=== PATIENT | female | born 1975 | race Caucasian/White ===

== ENCOUNTER → 2018-01-19 | Day surgery (SDC) | payer BC ==
[2018-01-16 10:51] LABS: Basophils # (auto) 0 uL; Basophils % (auto) 0.3 % (0.0-2.0); Eosinophils # (auto) 0.1 uL; Eosinophils % (auto) 1.2 % (0.0-7.0); Hematocrit 37.8 % (36.0-46.0); Lymphocytes # (auto) 2.4 uL; Lymphocytes % (auto) 20.5 % (10.0-50.0); Mean Corpuscular Hemoglobin 27.8 pg (28.0-32.0); Mean Corpuscular Hgb Conc. 31.9 g/dL (32.0-36.0); Mean Corpuscular Volume 87.1 fL (80.0-100.0); Monocytes # (auto) 0.8 uL; Monocytes % (auto) 6.9 % (0.0-12.0); Neutrophils # (auto) 8.2 uL; Neutrophils % (auto) 71.1 % (37.0-80.0); Nucleated Red Blood Cells % 0.1 %; Platelet Count (auto) 340 10^3/uL (140-450); Red Blood Cells 4.34 10^6/uL (4.0-5.20); Red Cell Distribution Width 15.4 % (11.8-14.3); White Blood Cell 11.5 10^3/uL (4.4-10.8)
[2018-01-16 11:00] LABS: Urine Bacteria FEW /hpf (None Seen); Urine Blood Negative /uL (Negative); Urine Specific Gravity 1.003 (1.001-1.035); Urine WBC 4 /hpf (0 - 5)
[2018-01-16 11:02] LABS: INR 0.9 (0.9-1.15); Partial Thromboplastin Time 32.7 sec (23.78-33.04); Prothrombin Time 9.7 sec (9.27-12.13)
[2018-01-16 11:17] LABS: Albumin 3.4 g/dL (3.4-5.0); Calcium 9.1 mg/dL (8.5-10.1); Potassium 4.2 mmol/L (3.5-5.1)
[2018-01-16 11:20] LABS: Bilirubin, Total 0.4 mg/dL (0.2-1.0); Total Protein 8.7 g/dL (6.4-8.2)
[~2018-01-19] VITALS: Ht 160 cm; Wt 93.0 kg
[~2018-01-19] MED LIST: ALBUAER3 IN; DEXAMETHASONE SOD PHOS 10MG/1ML VIAL INJ ONE; GABA100C9 PO; HYDROmorphone HCL 2 MG/ML VL IV PRN; KETOROLAC TROMETH 30 MG/ML 1ML VIAL IV ONE; KETOROLAC TROMETH 30 MG/ML 1ML VIAL ONE; LABETALOL HCL 5 MG/ML 4ML SYRINGE IV PRN; LACTATED RINGER'S 1,000 ML IV SCH; MEPERIDINE HCL (50 MG/ML) 1 ML VIAL ONE; MIDAZOLAM HCL 1MG/1ML-2 ML VIAL IV PRN; MIDAZOLAM HCL 1MG/1ML-2 ML VIAL ONE; MONT10TA34 PO; MORPHINE SULFATE 4 MG/ML SYR/VIAL IV ONE; MORPHINE SULFATE 4 MG/ML SYR/VIAL IV PRN; ONDANSETRON HCL 4 MG/2 ML VIAL IV ONE; ONDANSETRON HCL 4 MG/2 ML VIAL IV PRN; PROPOFOL 10 MG/ML 20 ML IV ONE; SERT-160 PO; ceFAZolin 1GM/50ML 50 ML IV ONE; ePHEDrine SULFATE 50 MG/ML AMP IV PRN; fentaNYL CITRATE 100 MCG/2 ML VL ONE
== END | disposition home or self-care (01) ==
LOC: SUR 07:39
PROVIDERS: ATTEND Specialist
DX: D25.9 Leiomyoma of uterus, unspecified (principal); N92.0 Excessive and frequent menstruation with regular cycle; D64.9 Anemia, unspecified; F43.10 Post-traumatic stress disorder, unspecified; J45.909 Unspecified asthma, uncomplicated; N94.6 Dysmenorrhea, unspecified; K21.9 Gastro-esophageal reflux disease without esophagitis; F41.9 Anxiety disorder, unspecified; E66.9 Obesity, unspecified; F17.210 Nicotine dependence, cigarettes, uncomplicated; A63.0 Anogenital (venereal) warts; Z80.41 Family history of malignant neoplasm of ovary; Z3A.14 14 weeks gestation of pregnancy; Z79.899 Other long term (current) drug therapy; Z88.8 Allergy status to other drugs, medicaments and biological substances; Z98.890 Other specified postprocedural states; Z68.36 Body mass index [BMI] 36.0-36.9, adult; Z80.0 Family history of malignant neoplasm of digestive organs; Z80.8 Family history of malignant neoplasm of other organs or systems
CPT/HCPCS: 36415; 58558; 80053; 81001; 84702; 85025; 85610; 85730; 86850; 86900; 86901; J0690; J1100; J1885; J2175; J2250; J2704; J3010

== ENCOUNTER 2018-02-22 19:20 | Observation (INO) | payer BC ==
[~2018-02-22] VITALS: Ht 160 cm; Wt 94.3 kg
[~2018-02-22 19:20] MED LIST changes: -DEXAMETHASONE SOD PHOS 10MG/1ML VIAL INJ ONE; -HYDROmorphone HCL 2 MG/ML VL IV PRN; -KETOROLAC TROMETH 30 MG/ML 1ML VIAL IV ONE; -KETOROLAC TROMETH 30 MG/ML 1ML VIAL ONE; -LABETALOL HCL 5 MG/ML 4ML SYRINGE IV PRN; -LACTATED RINGER'S 1,000 ML IV SCH; -MEPERIDINE HCL (50 MG/ML) 1 ML VIAL ONE; -MIDAZOLAM HCL 1MG/1ML-2 ML VIAL IV PRN; -MIDAZOLAM HCL 1MG/1ML-2 ML VIAL ONE; -MORPHINE SULFATE 4 MG/ML SYR/VIAL IV ONE; -MORPHINE SULFATE 4 MG/ML SYR/VIAL IV PRN; -ONDANSETRON HCL 4 MG/2 ML VIAL IV ONE; -ONDANSETRON HCL 4 MG/2 ML VIAL IV PRN; -PROPOFOL 10 MG/ML 20 ML IV ONE; -ceFAZolin 1GM/50ML 50 ML IV ONE; -ePHEDrine SULFATE 50 MG/ML AMP IV PRN; -fentaNYL CITRATE 100 MCG/2 ML VL ONE
[2018-02-23 00:02] LABS: Basophils # (auto) 0.1 uL; Basophils % (auto) 0.5 % (0.0-2.0); Eosinophils # (auto) 0.2 uL; Eosinophils % (auto) 1.6 % (0.0-7.0); Hematocrit 36.5 % (36.0-46.0); Hemoglobin 11.8 g/dL (12.2-16.2); Lymphocytes # (auto) 2.6 uL; Lymphocytes % (auto) 17.3 % (10.0-50.0); Mean Corpuscular Hemoglobin 27.4 pg (28.0-32.0); Mean Corpuscular Hgb Conc. 32.5 g/dL (32.0-36.0); Mean Corpuscular Volume 84.5 fL (80.0-100.0); Monocytes # (auto) 1.2 uL; Monocytes % (auto) 7.9 % (0.0-12.0); Neutrophils # (auto) 10.8 uL; Neutrophils % (auto) 72.7 % (37.0-80.0); Nucleated Red Blood Cells % 0.1 %; Platelet Count (auto) 309 10^3/uL (140-450); Red Blood Cells 4.32 10^6/uL (4.0-5.20); White Blood Cell 14.8 10^3/uL (4.4-10.8)
[2018-02-23 00:22] LABS: Albumin 3.4 g/dL (3.4-5.0); Amylase 56 U/L (25-115); Anion Gap 12 (5-15); BUN/Creatinine Ratio 13.4; Blood Urea Nitrogen 13 mg/dL (7-18); Calcium 8.8 mg/dL (8.5-10.1); Carbon Dioxide 24 mmol/L (21-32); Chloride 106 mmol/L (98-107); GFR African American 81 mL/min; GFR Non-African American 67 mL/min; Glucose 96 mg/dL (74-106); Lipase 113 U/L (73-393); Sodium 142 mmol/L (136-145)
[2018-02-23 00:27] LABS: Alanine Aminotransferase 11 U/L (13-56); Alkaline Phosphatase 107 U/L (45-117); Aspartate Aminotransferase 14 U/L (15-37); Bilirubin, Total 0.4 mg/dL (0.2-1.0); Total Protein 8.3 g/dL (6.4-8.2)
[2018-02-23] MEDS ORDERED: ONDANSETRON HCL 4 MG/2 ML VIAL IV ONE (01:15)
[2018-02-23] MEDS ORDERED: MORPHINE SULFATE 4 MG/ML SYR/VIAL IV ONE (01:15)
[2018-02-23 01:22] LABS: Urine Bacteria FEW /hpf (None Seen); Urine Blood 3+ /uL (Negative); Urine Mucus FEW (None Seen); Urine Specific Gravity 1.026 (1.001-1.035); Urine WBC 30 /hpf (0 - 5)
[2018-02-23] MEDS ORDERED: metroNIDAZOLE 500 MG TAB PO ONE (01:45)
[2018-02-23] MEDS ORDERED: cefTRIAXone 1GM/50ML D5W 50 ML IV ONE (01:45)
[2018-02-23 02:03] VITALS: BP 116/66
== END 2018-02-23 02:15 | disposition home or self-care (01) | DRG 392 ==
LOC: ER 19:20 → OVERFLOW 23:37 → ER 02-23 02:15
PROVIDERS: ADMIT Emergency Medicine; ATTEND Emergency Medicine
DX: K59.00 Constipation, unspecified (principal); N85.2 Hypertrophy of uterus; N73.9 Female pelvic inflammatory disease, unspecified
CPT/HCPCS: 36415; 74176; 80053; 81001; 82150; 83690; 84484; 85025; 96374; 96375; 99284; G0378; J0696; J2270; J2405

== ENCOUNTER 2023-03-13 10:53 | Emergency (ER) | payer BC ==
[~2023-03-13] VITALS: Ht 160 cm; Wt 85.9 kg
[~2023-03-13 10:53] MED LIST changes: +GABA-1308 PO; -GABA100C9 PO; +MONT-8 PO; -MONT10TA34 PO
[2023-03-13 11:55] VITALS: BP 133/75; PULSE 95; TEMP 98.3
[2023-03-13] MEDS ORDERED: IPRATROPIUM BROM 0.5 MG/2.5ML INH SOL NEB ONE (12:15)
[2023-03-13] MEDS ORDERED: DexAMETHasone SOD PHOS 10MG/1ML VIAL INJ IM ONE (12:15)
[2023-03-13] MEDS ORDERED: ALBUTEROL SULF 2.5 MG/0.5ML(0.5%) NEB SOLN NEB ONE (12:15)
[2023-03-13 12:39] VITALS: RESP 20; O2SAT 95
[2023-03-13 13:19] LABS: COVID19 ANTIGEN SOFIA FIA NEGATIVE (NEGATIVE)
[2023-03-13 13:20] LABS: Rapid Influenza A Negative (Negative); Rapid Influenza B Negative (Negative)
[2023-03-13] MEDS ORDERED: ACET500T58 PO (14:28)
[2023-03-13] MEDS ORDERED: ALBU108A5 IN (14:28)
[2023-03-13] MEDS ORDERED: BENZ100C97 PO (14:28)
[2023-03-13] MEDS ORDERED: LORA10CA PO (14:28)
== END 2023-03-13 14:37 | disposition home or self-care (01) ==
LOC: ER 10:53
DX: J06.9 Acute upper respiratory infection, unspecified (principal); F12.10 Cannabis abuse, uncomplicated; Z20.822 Contact with and (suspected) exposure to COVID-19
CPT/HCPCS: 36415; 71046; 87426; 87804; 94640; 96372; 99284; J1100; J7644